=== PATIENT | female | born 1995 | race Caucasian/White ===

== ENCOUNTER 2018-03-10 01:55 | Emergency (ER) | payer OTHER ==
[~2018-03-10] VITALS: Ht 162.6 cm; Wt 77.1 kg
[2018-03-10] MEDS ORDERED: ALEVE220 M1 PO (02:02)
[2018-03-10] MEDS ORDERED: CLARITIN10 MG PO (02:02)
[2018-03-10] MEDS ORDERED: CORTISPORIN OTI10 ML OTIC (02:13)
[2018-03-10] MEDS ORDERED: AMOXICILLI250 MG/51 PO (02:13)
[2018-03-10 02:24] VITALS: BP 161/84
== END 2018-03-10 02:25 | disposition home or self-care (01) ==
LOC: M.ERS 01:55
DX: H66.92 Otitis media, unspecified, left ear (principal); H60.92 Unspecified otitis externa, left ear; J45.909 Unspecified asthma, uncomplicated